=== PATIENT | male | born 1980 | race African-American/Black ===

== ENCOUNTER 2018-04-13 17:42 | Inpatient (IN) | payer SELFPAY ==
[2018-04-13] VITALS (7 sets, daily range): BP systolic 100–117; BP diastolic 54–87
[~2018-04-13] VITALS: Ht 167.6 cm; Wt 78.7 kg
[~2018-04-13 17:42] MED LIST: CALCIUM CHLORIDE 1GM/10ML SYR IV ONE; EPINEPHRINE 0.1MG/ML (1:10,000) 10ML SYR ONE; MAGNESIUM SULFATE 4G IN WATER 100ML PREMIX IV ONE; SODIUM BICARBONATE 7.5% 0.9 MEQ/ML 50ML SYR IV ONE
[2018-04-13] MEDS ORDERED: EPINEPHRINE 0.1MG/ML (1:10,000) 10ML SYR ONE (18:06)
[2018-04-13] MEDS ORDERED: ALBUTEROL (0.083%) 2.5MG/3ML NEB ONE ×2 (18:07→18:30)
[2018-04-13] MEDS ORDERED: IPRATROPIUM BROMIDE (0.02%) 0.5MG/2.5ML NEB ONE (18:29)
[2018-04-13] MEDS ORDERED: NOREPINEPHRINE 4 MG in DEXTROSE 5% WATER 250 ML IV PRN (18:30)
[2018-04-13 19:03] LABS: BG FRACTION INSPIRED OXYGEN 100; BG SAMPLE SITE LEFT RADIAL; BG TIDAL VOLUME(mL) 450 mL; BG VENT MODE VENT - A/C; BG VENT RATE 12 set
[2018-04-13 19:04] LABS: BG BASE EXCESS -6.7 mmol/L (-2.0-2.0); BG DEOXYHEMOGLOBIN 0.3 % (0.0-5.0); BG HCO3 ACT 27.8 mmol/L (22.0-26.0); BG METHEMOGLOBIN 0.5 % (0.0-1.5); BG OXYGEN SATURATION 99.7 % (92.0-98.5); BG OXYHEMOGLOBIN 99.2 % (94.0-97.0); BG PCO2 119.2 mmHg (35.0-45.0); BG PH 6.985 (7.350-7.450); BG TOTAL HEMOGLOBIN 13.5 g/dL (12.0-18.0)
[2018-04-13] MEDS ORDERED: IPRATROPIUM BROMIDE (0.02%) 0.5MG/2.5ML NEB HHN STA (19:05)
[2018-04-13] MEDS ORDERED: ALBUTEROL (0.083%) 2.5MG/3ML NEB HHN STA (19:05)
[2018-04-13] MEDS ORDERED: METHYLPREDNISOLONE SOD SUCC 125 MG/2 ML VIAL IV STA (19:05)
[2018-04-13] MEDS ORDERED: MAGNESIUM 2 G PREMIX 50 ML IV ONE (19:15)
[2018-04-13] MEDS ORDERED: NOREPINEPHRINE 4 MG in DEXT 5% WATER 246 ML IV ONE (19:15)
[2018-04-13 19:42] LABS: BASOPHILS % 0.4 % (0.0-2.0); EOSINOPHILS % 10.7 % (0.0-5.0); HEMATOCRIT. 40.7 % (42.0-52.0); HEMOGLOBIN. 13.1 g/dL (14.0-18.0); LYMPHOCYTES % 28.8 % (20.0-50.0); MEAN CORPUSCULAR HEMOGLOBIN 30.6 pg (28.0-32.0); MEAN CORPUSCULAR VOLUME 94.9 fL (80.0-94.0); MONOCYTES % 2.3 % (2.0-8.0); NEUTROPHILS % 57.8 % (40.0-76.0); PLATELET 272 x1000/uL (130-400); RED BLOOD CELL COUNT 4.29 mill/uL (4.7-6.1); RED CELL DISTRIBUTION WIDTH 12.8 % (11.6-14.6)
[2018-04-13 19:48] LABS: CHLORIDE 107 mEq/L (98-107)
[2018-04-13 19:49] LABS: INR 1.1; PARTIAL THROMBOPLASTIN TIME 24.3 sec (23.4-31.0)
[2018-04-13 19:52] LABS: ETHANOL BLOOD < 10 mg/dL
[2018-04-13] MEDS ORDERED: PIPERACILLIN/TAZ 3.375G PREMIX 50 ML IV ONE (20:15)
[2018-04-13] MEDS ORDERED: VANCOMYCIN 1 G PREMIX 200 ML IV ONE (20:15)
[2018-04-13 21:03] LABS: BG CARBOXYHEMOGLOBIN 0.6 % (0.5-1.5); BG DEOXYHEMOGLOBIN 0.6 % (0.0-5.0); BG FRACTION INSPIRED OXYGEN 100; BG HCO3 ACT 30.4 mmol/L (22.0-26.0); BG METHEMOGLOBIN 0.7 % (0.0-1.5); BG OXYGEN SATURATION 99.4 % (92.0-98.5); BG OXYHEMOGLOBIN 98.1 % (94.0-97.0); BG PCO2 136.9 mmHg (35.0-45.0); BG PH 6.964 (7.350-7.450); BG SAMPLE SITE RIGHT RADIAL; BG TIDAL VOLUME(mL) 450 mL; BG TOTAL HEMOGLOBIN 15.9 g/dL (12.0-18.0); BG VENT MODE VENT - A/C; BG VENT RATE 12 set
[2018-04-13] MEDS ORDERED: CLONIDINE 0.1MG TABLET NG PRN (21:15)
[2018-04-13] MEDS ORDERED: ACETAMINOPHEN 650MG/20.3ML UDC GT PRN (21:15)
[2018-04-13] MEDS ORDERED: DIPHENHYDRAMINE 50MG/ML VIAL IV PRN (21:15)
[2018-04-13] MEDS ORDERED: LORAZEPAM 2MG/ML CPJ IV PRN (21:15)
[2018-04-13] MEDS ORDERED: IPRATROPIUM/ALBUTEROL 0.5-3(2.5)MG/3ML NEB INH PRN (21:15)
[2018-04-13] MEDS ORDERED: IOHEXOL-350 100 ML BOTTLE ONE (21:19)
[2018-04-13] MEDS ORDERED: SODIUM CHLORIDE 0.9% 2,000 ML IV ONE (21:54)
[2018-04-13 22:25] LABS: CLARITY URINE CLOUDY (CLEAR); COLOR URINE YELLOW (YELLOW); KETONES URINE NEGATIVE (NEGATIVE); LEUKOCYTE ESTERASE URINE NEGATIVE (NEGATIVE); NITRITE URINE NEGATIVE (NEGATIVE); OCCULT BLOOD URINE 3+ (NEGATIVE); PROTEIN URINE 3+ (NEGATIVE); SPECIFIC GRAVITY URINE 1.048 (1.005-1.030)
[2018-04-13 22:39] LABS: *BARBITURATES SCREEN URINE NEGATIVE (NEGATIVE); *BENZODIAZEPINES SCREEN URINE NEGATIVE (NEGATIVE); *COCAINE SCREEN URINE NEGATIVE (NEGATIVE)
[2018-04-13 22:40] LABS: *AMPHETAMINES SCREEN URINE NEGATIVE (NEGATIVE); CANNABINOID URINE SCREEN NEGATIVE (NEGATIVE); METHADONE URINE SCREEN NEGATIVE (NEGATIVE); OPIATES URINE SCREEN NEGATIVE (NEGATIVE); PHENCYCLIDINE URINE SCREEN NEGATIVE (NEGATIVE)
[2018-04-13 22:52] LABS: BG BASE EXCESS -3.5 mmol/L (-2.0-2.0); BG CARBOXYHEMOGLOBIN 0.3 % (0.5-1.5); BG DEOXYHEMOGLOBIN 4.8 % (0.0-5.0); BG FRACTION INSPIRED OXYGEN 60; BG HCO3 ACT 31.2 mmol/L (22.0-26.0); BG METHEMOGLOBIN 0.5 % (0.0-1.5); BG OXYGEN SATURATION 95.2 % (92.0-98.5); BG OXYHEMOGLOBIN 94.4 % (94.0-97.0); BG PCO2 120.6 mmHg (35.0-45.0); BG SAMPLE SITE RIGHT RADIAL; BG TIDAL VOLUME(mL) 500 mL; BG TOTAL HEMOGLOBIN 15.1 g/dL (12.0-18.0); BG VENT MODE VENT - A/C; BG VENT RATE 16 set
[2018-04-13] MEDS ORDERED: MORPHINE SULFATE 4 MG/ML CPJ (NOT FOR IM USE) IV PRN (23:00)
[2018-04-13] MEDS ORDERED: ONDANSETRON HCL 4MG/2ML VIAL IV PRN (23:06)
[2018-04-13] MEDS: DEXT 5%/0.45% NACL 1000ML 1,000 ML IV SCH (23:15)
[2018-04-14] VITALS (95 sets, daily range): BP systolic 107–151; BP diastolic 64–107
[2018-04-14] MEDS: DEXAMETHASONE 10 MG/ML VIAL IV SCH ×5 (00:57→23:04)
[2018-04-14] MEDS ORDERED: LEVOFLOXACIN 500MG PREMIX 100 ML IV SCH (01:00)
[2018-04-14] MEDS ORDERED: METHYLPREDNISOLONE SOD SUCC 125 MG/2 ML VIAL IV SCH (05:00)
[2018-04-14 05:43] LABS: HEMATOCRIT. 45.3 % (42.0-52.0); HEMOGLOBIN. 14.3 g/dL (14.0-18.0); MEAN CORPUSCULAR HEMOGLOBIN 30.1 pg (28.0-32.0); MEAN CORPUSCULAR VOLUME 95.9 fL (80.0-94.0); MEAN PLATELET VOLUME 8.1 fl (7.4-10.4); PLATELET 291 x1000/uL (130-400); RED BLOOD CELL COUNT 4.73 mill/uL (4.7-6.1)
[2018-04-14] MEDS: DEXT 5%/0.45% NACL 1000ML 1,000 ML IV SCH ×3 (05:56→23:04)
[2018-04-14 06:07] LABS: BG BASE EXCESS -6.7 mmol/L (-2.0-2.0); BG CARBOXYHEMOGLOBIN 0.2 % (0.5-1.5); BG DEOXYHEMOGLOBIN 0.8 % (0.0-5.0); BG FRACTION INSPIRED OXYGEN 60; BG HCO3 ACT 19.4 mmol/L (22.0-26.0); BG METHEMOGLOBIN 0.4 % (0.0-1.5); BG OXYGEN SATURATION 99.2 % (92.0-98.5); BG OXYHEMOGLOBIN 98.6 % (94.0-97.0); BG PCO2 40.7 mmHg (35.0-45.0); BG PH 7.296 (7.350-7.450); BG PO2 180.4 mmHg (75.0-100.0); BG SAMPLE SITE RIGHT RADIAL; BG TIDAL VOLUME(mL) 550 mL; BG VENT MODE VENT - A/C; BG VENT RATE 22 set
[2018-04-14] MEDS ORDERED: SODIUM BICARBONATE 8.4% 1 MEQ/ML 50ML SYR IV NR (06:45)
[2018-04-14 07:16] LABS: CHLORIDE 107 mEq/L (98-107)
[2018-04-14 07:23] LABS: PHOSPHORUS 5.3 mg/dL (2.5-4.9)
[2018-04-14] MEDS: IPRATROPIUM/ALBUTEROL 0.5-3(2.5)MG/3ML NEB HHN SCH ×4 (07:55→20:27)
[2018-04-14] MEDS ORDERED: ENOXAPARIN 40MG/0.4ML SYR SUBCUT SCH (09:00)
[2018-04-14] MEDS ORDERED: PANTOPRAZOLE SODIUM 40 MG/VIAL IV SCH (09:00)
[2018-04-14] MEDS: FAMOTIDINE 20MG/2ML VIAL IV SCH (09:28)
[2018-04-14] MEDS: PIPERACILLIN/TAZ 3.375G PREMIX 50 ML IV SCH ×3 (09:28→20:25)
[2018-04-14] MEDS: LORATADINE 10MG TABLET PO SCH (09:28)
[2018-04-14] MEDS ORDERED: SODIUM POLYSTYRENE SULFONATE 15 G/60 ML BOT PO NR (11:00)
[2018-04-14] MEDS: BUDESONIDE 0.5MG/2ML NEB HHN SCH ×2 (11:31→20:27)
[2018-04-14] MEDS: ACETAMINOPHEN 650MG SUPP PR PRN ×2 (11:40→17:09)
[2018-04-14 12:14] LABS: CREATINE KINASE 29478 IU/L (39-308)
[2018-04-14 12:39] LABS: BG BASE EXCESS 0.7 mmol/L (-2.0-2.0); BG CARBOXYHEMOGLOBIN 0.9 % (0.5-1.5); BG DEOXYHEMOGLOBIN 2.8 % (0.0-5.0); BG FRACTION INSPIRED OXYGEN 50; BG HCO3 ACT 26.8 mmol/L (22.0-26.0); BG METHEMOGLOBIN 0.5 % (0.0-1.5); BG OXYGEN SATURATION 97.2 % (92.0-98.5); BG OXYHEMOGLOBIN 95.8 % (94.0-97.0); BG PCO2 48.5 mmHg (35.0-45.0); BG SAMPLE SITE RIGHT RADIAL; BG TIDAL VOLUME(mL) 550 mL; BG TOTAL HEMOGLOBIN 14.8 g/dL (12.0-18.0); BG VENT MODE VENT - A/C; BG VENT RATE 22 set
[2018-04-14 13:21] LABS: AMMONIA 22 uMol/L (<32)
[2018-04-14 13:27] LABS: PLATELET ESTIMATE NORMAL
[2018-04-14] MEDS ORDERED: VANCOMYCIN 1 G PREMIX 200 ML IV SCH (15:00)
[2018-04-14] MEDS: MONTELUKAST SODIUM 10MG TABLET PO SCH (17:09)
[2018-04-14] MEDS ORDERED: LORAZEPAM 2MG/ML CPJ IV PRN (21:15)
[2018-04-14] MEDS ORDERED: HYDRALAZINE 20MG/ML VIAL IV PRN (23:00)
[2018-04-15] VITALS (98 sets, daily range): BP systolic 74–145; BP diastolic 44–87
[2018-04-15] MEDS: POLYVINYL ALCOHOL OPHTH DROPS 15ML BOTHEYE SCH ×5 (00:38→23:32)
[2018-04-15] MEDS: IPRATROPIUM/ALBUTEROL 0.5-3(2.5)MG/3ML NEB HHN SCH ×7 (01:00→23:48)
[2018-04-15] MEDS: PIPERACILLIN/TAZ 3.375G PREMIX 50 ML IV SCH ×4 (03:06→20:05)
[2018-04-15] MEDS: DEXAMETHASONE 10 MG/ML VIAL IV SCH ×4 (05:30→23:32)
[2018-04-15] MEDS ORDERED: VANCOMYCIN 1 G PREMIX 200 ML IV SCH (06:00)
[2018-04-15] MEDS: DEXT 5%/0.45% NACL 1000ML 1,000 ML IV SCH ×3 (07:26→23:37)
[2018-04-15 07:41] LABS: BG BASE EXCESS 1.7 mmol/L (-2.0-2.0); BG CARBOXYHEMOGLOBIN 0.3 % (0.5-1.5); BG FRACTION INSPIRED OXYGEN 50; BG HCO3 ACT 27.4 mmol/L (22.0-26.0); BG METHEMOGLOBIN 1.3 % (0.0-1.5); BG OXYHEMOGLOBIN 96.4 % (94.0-97.0); BG PCO2 47.1 mmHg (35.0-45.0); BG PH 7.382 (7.350-7.450); BG PO2 115.5 mmHg (75.0-100.0); BG SAMPLE SITE RIGHT RADIAL; BG TIDAL VOLUME(mL) 550 mL; BG TOTAL HEMOGLOBIN 13.6 g/dL (12.0-18.0); BG VENT MODE VENT - A/C; BG VENT RATE 22 set
[2018-04-15] MEDS: BUDESONIDE 0.5MG/2ML NEB HHN SCH (08:14)
[2018-04-15] MEDS: PHENYLEPHRINE 40 MG in DEXT 5% WATER 246 ML IV PRN ×2 (08:46→18:00)
[2018-04-15] MEDS: FAMOTIDINE 20MG/2ML VIAL IV SCH (08:57)
[2018-04-15] MEDS: LORATADINE 10MG TABLET PO SCH (08:57)
[2018-04-15 13:02] LABS: HEMATOCRIT. 38.2 % (42.0-52.0); HEMOGLOBIN. 12.6 g/dL (14.0-18.0); MEAN CORPUSCULAR HEMOGLOBIN 30.4 pg (28.0-32.0); MEAN CORPUSCULAR VOLUME 92.6 fL (80.0-94.0); MEAN PLATELET VOLUME 7.8 fl (7.4-10.4); PLATELET 190 x1000/uL (130-400); RED BLOOD CELL COUNT 4.13 mill/uL (4.7-6.1); RED CELL DISTRIBUTION WIDTH 12.7 % (11.6-14.6)
[2018-04-15 13:09] LABS: CHLORIDE 111 mEq/L (98-107)
[2018-04-15 13:15] LABS: PHOSPHORUS 1.8 mg/dL (2.5-4.9)
[2018-04-15] MEDS: BLOOD SUGAR DIAGNOSTIC STRIP TEST SCH ×4 (13:15→23:32)
[2018-04-15] MEDS ORDERED: DEXTROSE 50% WATER 50ML SYRINGE IV PRN (13:15)
[2018-04-15 13:41] LABS: PLATELET ESTIMATE NORMAL
[2018-04-15] MEDS: MONTELUKAST SODIUM 10MG TABLET PO SCH (16:16)
[2018-04-15] MEDS: INSULIN LISPRO 100 UNITS/ML SUBCUT SCH ×3 (16:17→23:33)
[2018-04-16] VITALS (93 sets, daily range): BP systolic 82–159; BP diastolic 37–121
[2018-04-16] MEDS: BLOOD SUGAR DIAGNOSTIC STRIP TEST SCH ×6 (03:57→23:24)
[2018-04-16] MEDS: INSULIN LISPRO 100 UNITS/ML SUBCUT SCH ×6 (03:58→23:25)
[2018-04-16] MEDS: PIPERACILLIN/TAZ 3.375G PREMIX 50 ML IV SCH ×4 (03:58→20:00)
[2018-04-16] MEDS: IPRATROPIUM/ALBUTEROL 0.5-3(2.5)MG/3ML NEB HHN SCH ×5 (04:08→21:03)
[2018-04-16 05:20] LABS: HEMATOCRIT. 40.2 % (42.0-52.0); HEMOGLOBIN. 13.1 g/dL (14.0-18.0); MEAN CORPUSCULAR HEMOGLOBIN 30.4 pg (28.0-32.0); MEAN CORPUSCULAR VOLUME 93.1 fL (80.0-94.0); MEAN PLATELET VOLUME 8.6 fl (7.4-10.4); PLATELET 218 x1000/uL (130-400); RED BLOOD CELL COUNT 4.32 mill/uL (4.7-6.1); RED CELL DISTRIBUTION WIDTH 12.9 % (11.6-14.6)
[2018-04-16] MEDS: POLYVINYL ALCOHOL OPHTH DROPS 15ML BOTHEYE SCH ×4 (05:50→23:27)
[2018-04-16] MEDS: DEXAMETHASONE 10 MG/ML VIAL IV SCH ×4 (05:51→23:24)
[2018-04-16] MEDS: BUDESONIDE 0.5MG/2ML NEB HHN SCH ×2 (07:46→21:01)
[2018-04-16] MEDS: DEXT 5%/0.45% NACL 1000ML 1,000 ML IV SCH (08:11)
[2018-04-16] MEDS: LORATADINE 10MG TABLET PO SCH (08:57)
[2018-04-16] MEDS: ASPIRIN 81MG TABLET PO SCH (08:57)
[2018-04-16] MEDS: FAMOTIDINE 20MG/2ML VIAL IV SCH (08:57)
[2018-04-16] MEDS: AMMONIUM LACTATE 12% LOTION 240ML TOP SCH ×2 (08:58→16:41)
[2018-04-16] MEDS: DEXT 5%/0.2% NACL 1,000 ML IV SCH ×2 (08:59→17:37)
[2018-04-16] MEDS: INSULIN GLARGINE UD 100 UNITS/ML SYR SUBCUT SCH ×2 (09:11→21:02)
[2018-04-16] MEDS ORDERED: VANCOMYCIN 1 G PREMIX 200 ML IV SCH (10:00)
[2018-04-16 10:47] LABS: PLATELET ESTIMATE NORMAL
[2018-04-16] MEDS: PHENYLEPHRINE 40 MG in DEXT 5% WATER 246 ML IV PRN (12:35)
[2018-04-16] MEDS: MONTELUKAST SODIUM 10MG TABLET PO SCH (16:41)
[2018-04-17] VITALS (113 sets, daily range): BP systolic 84–155; BP diastolic 42–99
[2018-04-17] MEDS ORDERED: VANCOMYCIN 1 G PREMIX 200 ML IV SCH
[2018-04-17] MEDS: IPRATROPIUM/ALBUTEROL 0.5-3(2.5)MG/3ML NEB HHN SCH ×4 (00:50→12:35)
[2018-04-17] MEDS: PIPERACILLIN/TAZ 3.375G PREMIX 50 ML IV SCH ×2 (02:44→08:52)
[2018-04-17] MEDS: BLOOD SUGAR DIAGNOSTIC STRIP TEST SCH ×3 (03:33→14:10)
[2018-04-17] MEDS: INSULIN LISPRO 100 UNITS/ML SUBCUT SCH ×3 (03:36→14:01)
[2018-04-17] MEDS: DEXT 5%/0.2% NACL 1,000 ML IV SCH (03:36)
[2018-04-17 05:31] LABS: HEMATOCRIT. 41.3 % (42.0-52.0); HEMOGLOBIN. 13.2 g/dL (14.0-18.0); MEAN CORPUSCULAR HEMOGLOBIN 30.6 pg (28.0-32.0); MEAN CORPUSCULAR VOLUME 96.1 fL (80.0-94.0); MEAN PLATELET VOLUME 9.3 fl (7.4-10.4); PLATELET 209 x1000/uL (130-400); RED CELL DISTRIBUTION WIDTH 13.5 % (11.6-14.6)
[2018-04-17 05:54] LABS: PHOSPHORUS 2.8 mg/dL (2.5-4.9)
[2018-04-17] MEDS: DEXAMETHASONE 10 MG/ML VIAL IV SCH (05:57)
[2018-04-17] MEDS: POLYVINYL ALCOHOL OPHTH DROPS 15ML BOTHEYE SCH ×2 (05:58→14:10)
[2018-04-17] MEDS: PHENYLEPHRINE 40 MG in DEXT 5% WATER 246 ML IV PRN (05:59)
[2018-04-17] MEDS: BUDESONIDE 0.5MG/2ML NEB HHN SCH (08:05)
[2018-04-17 08:43] LABS: BG BASE EXCESS -1.8 mmol/L (-2.0-2.0); BG CARBOXYHEMOGLOBIN 0.6 % (0.5-1.5); BG DEOXYHEMOGLOBIN 1.9 % (0.0-5.0); BG FRACTION INSPIRED OXYGEN 50; BG HCO3 ACT 24.1 mmol/L (22.0-26.0); BG METHEMOGLOBIN 0.3 % (0.0-1.5); BG OXYGEN SATURATION 98.1 % (92.0-98.5); BG OXYHEMOGLOBIN 97.2 % (94.0-97.0); BG PCO2 45.2 mmHg (35.0-45.0); BG PH 7.344 (7.350-7.450); BG PO2 115.3 mmHg (75.0-100.0); BG SAMPLE SITE RIGHT RADIAL; BG TIDAL VOLUME(mL) 550 mL; BG VENT MODE VENT - A/C; BG VENT RATE 22 set
[2018-04-17] MEDS: LORATADINE 10MG TABLET PO SCH (08:52)
[2018-04-17] MEDS: FAMOTIDINE 20MG/2ML VIAL IV SCH (08:52)
[2018-04-17] MEDS: ASPIRIN 81MG TABLET PO SCH (08:52)
[2018-04-17] MEDS ORDERED: DEXTROSE 5% WATER 1,000 ML IV SCH ×2 (09:00→12:45)
[2018-04-17] MEDS: AMMONIUM LACTATE 12% LOTION 240ML TOP SCH (09:33)
[2018-04-17 09:43] LABS: BG BASE EXCESS 0.1 mmol/L (-2.0-2.0); BG CARBOXYHEMOGLOBIN 0.5 % (0.5-1.5); BG DEOXYHEMOGLOBIN 0.2 % (0.0-5.0); BG FRACTION INSPIRED OXYGEN 100; BG HCO3 ACT 25.8 mmol/L (22.0-26.0); BG METHEMOGLOBIN 0.4 % (0.0-1.5); BG OXYGEN SATURATION 99.8 % (92.0-98.5); BG OXYHEMOGLOBIN 98.9 % (94.0-97.0); BG PCO2 45.6 mmHg (35.0-45.0); BG PO2 524.6 mmHg (75.0-100.0); BG SAMPLE SITE LEFT RADIAL; BG TIDAL VOLUME(mL) 550 mL; BG TOTAL HEMOGLOBIN 13.7 g/dL (12.0-18.0); BG VENT MODE VENT - A/C; BG VENT RATE 22 set
[2018-04-17 09:55] LABS: BG BASE EXCESS -1.5 mmol/L (-2.0-2.0); BG CARBOXYHEMOGLOBIN 0.3 % (0.5-1.5); BG DEOXYHEMOGLOBIN 0.3 % (0.0-5.0); BG FRACTION INSPIRED OXYGEN 44; BG METHEMOGLOBIN 0.5 % (0.0-1.5); BG OXYGEN SATURATION 99.7 % (92.0-98.5); BG OXYHEMOGLOBIN 98.9 % (94.0-97.0); BG PCO2 71.4 mmHg (35.0-45.0); BG PH 7.212 (7.350-7.450); BG PO2 440.8 mmHg (75.0-100.0); BG SAMPLE SITE RIGHT RADIAL; BG TOTAL HEMOGLOBIN 13.7 g/dL (12.0-18.0); BG VENT MODE NASAL CANNULA
[2018-04-17 09:57] LABS: PLATELET ESTIMATE NORMAL
[2018-04-17] MEDS ORDERED: VASOPRESSIN 10 UNIT in SODIUM CHLORIDE 0.9% 99.5 ML IV PRN (10:30)
[2018-04-17] MEDS: INSULIN GLARGINE UD 100 UNITS/ML SYR SUBCUT SCH (11:35)
== END 2018-04-17 13:57 | disposition expired | DRG 720 ==
LOC: ER 17:42 → EDBEDREQSVC 18:49 → EDBEDREQ 20:18 → EDBEDREQTM 20:18 → ENRESERV 20:32 → MICUSO 22:36
PROVIDERS: ADMIT Internal Medicine; ATTEND Internal Medicine
PROC: 5A1955Z Respiratory Ventilation, Greater than 96 Consecutive Hours (ICD-10-PCS; principal; 2018-04-13)
PROC: 5A12012 Performance of Cardiac Output, Single, Manual (ICD-10-PCS; 2018-04-13)
PROC: 02HV33Z Insertion of Infusion Device into Superior Vena Cava, Percutaneous Approach (ICD-10-PCS; 2018-04-13)
PROC: B548ZZA Ultrasonography of Superior Vena Cava, Guidance (ICD-10-PCS; 2018-04-13)
PROC: 4A00X4Z Measurement of Central Nervous Electrical Activity, External Approach (ICD-10-PCS; 2018-04-14)
DX: A41.9 Sepsis, unspecified organism (principal); I21.4 Non-ST elevation (NSTEMI) myocardial infarction; J96.02 Acute respiratory failure with hypercapnia; I46.8 Cardiac arrest due to other underlying condition; J69.0 Pneumonitis due to inhalation of food and vomit; E87.2 Acidosis; G93.1 Anoxic brain damage, not elsewhere classified; D72.1 Eosinophilia; N17.9 Acute kidney failure, unspecified; J45.901 Unspecified asthma with (acute) exacerbation; E44.0 Moderate protein-calorie malnutrition; R74.0 Nonspecific elevation of levels of transaminase and lactic acid dehydrogenase [LDH]; R40.2430 Glasgow coma scale score 3-8, unspecified time; Z91.012 Allergy to eggs; Z91.018 Allergy to other foods; Z68.28 Body mass index [BMI] 28.0-28.9, adult
CPT/HCPCS: 31500; 36415; 36556; 36600; 70450; 71045; 71275; 78615; 80048; 80053; 80202; 80305; 81003; 82140; 82375; 82550; 82805; 82962; 83605; 83690; 83735; 83880; 84100; 84484; 85025; 85610; 85730; 86703; 87040; 87070; 87086; 92950; 93005; 93306; 93970; 94002; 94003; 94640; 96365; 96367; 99291; 99292; A9512; G0482; J1100; J1815; J1956; J2060; J2270; J2370; J2543; J2930; J3370; J3475; J3490; J7030; J7050; J7060; J7070; J7611; J7620; J7626; Q9967

== ENCOUNTER 2018-04-17 13:57 | Inpatient (IN) | payer OTHER ==
[~2018-04-17] VITALS: Ht 198.1 cm; Wt 81.6 kg
[2018-04-17] VITALS (17 sets, daily range): BP systolic 81–197; BP diastolic 50–111
[2018-04-17] MEDS ORDERED: INSULIN LISPRO 100 UNITS/ML SUBCUT SCH (16:00)
[2018-04-17] MEDS ORDERED: BLOOD SUGAR DIAGNOSTIC STRIP TEST SCH ×2 (16:00→18:45)
[2018-04-17 16:24] LABS: BG BASE EXCESS 1.7 mmol/L (-2.0-2.0); BG CARBOXYHEMOGLOBIN 0.3 % (0.5-1.5); BG DEOXYHEMOGLOBIN 1.6 % (0.0-5.0); BG FRACTION INSPIRED OXYGEN 50; BG HCO3 ACT 27.8 mmol/L (22.0-26.0); BG METHEMOGLOBIN 0.3 % (0.0-1.5); BG OXYGEN SATURATION 98.4 % (92.0-98.5); BG OXYHEMOGLOBIN 97.8 % (94.0-97.0); BG PCO2 50.4 mmHg (35.0-45.0); BG PO2 118.9 mmHg (75.0-100.0); BG SAMPLE SITE RIGHT BRACHIAL; BG TIDAL VOLUME(mL) 550 mL; BG TOTAL HEMOGLOBIN 12.4 g/dL (12.0-18.0); BG VENT MODE VENT - A/C; BG VENT RATE 22 set
[2018-04-17] MEDS ORDERED: DEXTROSE 5% WATER 1,000 ML IV SCH (17:00)
[2018-04-17] MEDS ORDERED: VASOPRESSIN 100 UNIT in SODIUM CHLORIDE 0.9% 99.5 ML IV PRN (17:00)
[2018-04-17] MEDS ORDERED: ONDANSETRON HCL 4MG/2ML VIAL IV PRN (17:00)
[2018-04-17] MEDS ORDERED: ACETAMINOPHEN 650MG/20.3ML UDC PO PRN (17:00)
[2018-04-17] MEDS ORDERED: DEXTROSE 50% WATER 50ML SYRINGE IV PRN (17:15)
[2018-04-17] MEDS ORDERED: DOBUTAMINE 250MG PREMIX 250 ML IV SCH ×2 (17:15→18:37)
[2018-04-17] MEDS ORDERED: INSULIN REGULAR (DRIP) 100 UNITS in SODIUM CHLORIDE 0.9% 99 ML IV SCH (18:15)
[2018-04-17 18:38] LABS: HEMOGLOBIN. 11.4 g/dL (14.0-18.0); MEAN CORPUSCULAR HEMOGLOBIN 30.4 pg (28.0-32.0); MEAN PLATELET VOLUME 8.3 fl (7.4-10.4); PLATELET 173 x1000/uL (130-400); RED BLOOD CELL COUNT 3.75 mill/uL (4.7-6.1); RED CELL DISTRIBUTION WIDTH 13.5 % (11.6-14.6)
[2018-04-17 18:45] LABS: CHLORIDE 126 mEq/L (98-107)
[2018-04-17] MEDS ORDERED: SODIUM CHLORIDE 0.9% 500 ML IV SCH (18:45)
[2018-04-17 18:47] LABS: INR 1.1; PARTIAL THROMBOPLASTIN TIME 21.1 sec (23.4-31.0); PROTHROMBIN TIME 10.7 sec (9.1-11.1)
[2018-04-17 18:53] LABS: AMYLASE 92 IU/L (25-115)
[2018-04-17 18:56] LABS: PHOSPHORUS 3.4 mg/dL (2.5-4.9)
[2018-04-17 18:58] LABS: CREATINE KINASE 490 IU/L (39-308); CREATINE KINASE MB FRACTION 2.9 ng/mL (0.5-3.6)
[2018-04-17] MEDS ORDERED: HETASTARCH/NORMAL SALINE 500 ML PLAST..BAG IV ONE (19:15)
[2018-04-17 19:21] LABS: PLATELET ESTIMATE NORMAL
[2018-04-17] MEDS ORDERED: HETASTARCH IV NR (19:45)
[2018-04-17] MEDS ORDERED: NORMAL SALINE IV NR (19:45)
[2018-04-17] MEDS ORDERED: HETASTARCH/NORMAL SALINE 500 ML IV NR (19:45)
[2018-04-17] MEDS: VASOPRESSIN 100 UNIT in SODIUM CHLORIDE 0.9% 99.5 ML IV SCH (19:55)
[2018-04-17] MEDS: INSULIN REGULAR (DRIP) 100 UNITS in SODIUM CHLORIDE 0.9% 100 ML IV SCH (20:23)
[2018-04-17 21:34] LABS: CLARITY URINE CLOUDY (CLEAR); COLOR URINE YELLOW (YELLOW); KETONES URINE NEGATIVE (NEGATIVE); LEUKOCYTE ESTERASE URINE NEGATIVE (NEGATIVE); NITRITE URINE NEGATIVE (NEGATIVE); OCCULT BLOOD URINE 1+ (NEGATIVE); PROTEIN URINE 1+ (NEGATIVE); SPECIFIC GRAVITY URINE 1.028 (1.005-1.030); UROBILINOGEN URINE 0.2 E.U./dL (0.2-1.0)
[2018-04-17] MEDS: BLOOD SUGAR DIAGNOSTIC STRIP TEST SCH (22:00)
[2018-04-17] MEDS ORDERED: LEVOTHYROXINE SODIUM 100 MCG/ VIAL IV SCH ×2 (22:10→22:15)
[2018-04-17 22:17] LABS: BG BASE EXCESS -0.2 mmol/L (-2.0-2.0); BG DEOXYHEMOGLOBIN 0.6 % (0.0-5.0); BG FRACTION INSPIRED OXYGEN 50; BG HCO3 ACT 25.3 mmol/L (22.0-26.0); BG METHEMOGLOBIN 0.2 % (0.0-1.5); BG OXYGEN SATURATION 99.4 % (92.0-98.5); BG OXYHEMOGLOBIN 99.2 % (94.0-97.0); BG PCO2 45.3 mmHg (35.0-45.0); BG PH 7.365 (7.350-7.450); BG PO2 230.7 mmHg (75.0-100.0); BG SAMPLE SITE A-LINE; BG TOTAL HEMOGLOBIN 10.5 g/dL (12.0-18.0); BG VENT MODE VENT - PCV
[2018-04-17] MEDS: LEVOTHYROXINE SODIUM 200 MCG in SODIUM CHLORIDE 0.9% 500 ML IV SCH (22:56)
[2018-04-18] VITALS (68 sets, daily range): BP systolic 108–169; BP diastolic 65–113
[2018-04-18] MEDS ORDERED: LEVOTHYROXINE SODIUM 100 MCG/ VIAL IV SCH
[2018-04-18] MEDS ORDERED: SODIUM CHLORIDE 0.9% IV SCH ×2
[2018-04-18] MEDS ORDERED: METHYLPREDNISOLONE SOD SUCC IV SCH ×2
[2018-04-18 00:29] LABS: BG CARBOXYHEMOGLOBIN 0.5 % (0.5-1.5); BG FRACTION INSPIRED OXYGEN 40; BG HCO3 ACT 24.2 mmol/L (22.0-26.0); BG METHEMOGLOBIN 0.3 % (0.0-1.5); BG OXYHEMOGLOBIN 98.2 % (94.0-97.0); BG PCO2 42.5 mmHg (35.0-45.0); BG PH 7.374 (7.350-7.450); BG PO2 167.2 mmHg (75.0-100.0); BG SAMPLE SITE A-LINE; BG TOTAL HEMOGLOBIN 13.2 g/dL (12.0-18.0); BG VENT MODE VENT - PCV
[2018-04-18 00:50] LABS: BASOPHILS % 0.1 % (0.0-2.0); HEMATOCRIT. 30.9 % (42.0-52.0); HEMOGLOBIN. 9.8 g/dL (14.0-18.0); LYMPHOCYTES % 8.2 % (20.0-50.0); MEAN CORPUSCULAR HEMOGLOBIN 30.2 pg (28.0-32.0); MEAN CORPUSCULAR VOLUME 95.1 fL (80.0-94.0); MEAN PLATELET VOLUME 8.6 fl (7.4-10.4); MONOCYTES % 6.9 % (2.0-8.0); NEUTROPHILS % 84.8 % (40.0-76.0); PLATELET 141 x1000/uL (130-400); RED BLOOD CELL COUNT 3.25 mill/uL (4.7-6.1); RED CELL DISTRIBUTION WIDTH 13.4 % (11.6-14.6)
[2018-04-18 00:57] LABS: INR 1.1; PARTIAL THROMBOPLASTIN TIME 21.1 sec (23.4-31.0)
[2018-04-18 00:58] LABS: CHLORIDE 131 mEq/L (98-107)
[2018-04-18 01:04] LABS: AMYLASE 232 IU/L (25-115)
[2018-04-18 01:06] LABS: PHOSPHORUS 3.7 mg/dL (2.5-4.9)
[2018-04-18 01:08] LABS: CREATINE KINASE 318 IU/L (39-308)
[2018-04-18 01:09] LABS: CREATINE KINASE MB FRACTION 1.9 ng/mL (0.5-3.6)
[2018-04-18] MEDS ORDERED: ALBUMIN HUMAN 25GM/100ML (25%) IV SCH (01:15)
[2018-04-18] MEDS ORDERED: FUROSEMIDE 100MG/10ML VIAL IVP SCH ×2 (01:16→06:00)
[2018-04-18] MEDS: BLOOD SUGAR DIAGNOSTIC STRIP TEST SCH ×14 (02:00→23:55)
[2018-04-18 04:16] LABS: CLARITY URINE TURBID (CLEAR); COLOR URINE DARK YELLOW (YELLOW); KETONES URINE TRACE (NEGATIVE); LEUKOCYTE ESTERASE URINE NEGATIVE (NEGATIVE); NITRITE URINE NEGATIVE (NEGATIVE); OCCULT BLOOD URINE 2+ (NEGATIVE); PROTEIN URINE 2+ (NEGATIVE); SPECIFIC GRAVITY URINE 1.059 (1.005-1.030)
[2018-04-18] MEDS: KCL 20MEQ/100ML PREMIX 100 ML IV SCH ×2 (04:36→05:42)
[2018-04-18] MEDS ORDERED: KCL 20MEQ/100ML PREMIX 100 ML IV ONE (05:00)
[2018-04-18] MEDS: INSULIN REGULAR (DRIP) 100 UNITS in SODIUM CHLORIDE 0.9% 100 ML IV SCH ×2 (05:24→13:55)
[2018-04-18 06:08] LABS: BG BASE EXCESS 0.2 mmol/L (-2.0-2.0); BG CARBOXYHEMOGLOBIN 0.3 % (0.5-1.5); BG DEOXYHEMOGLOBIN 2.3 % (0.0-5.0); BG FRACTION INSPIRED OXYGEN 30; BG HCO3 ACT 26.3 mmol/L (22.0-26.0); BG METHEMOGLOBIN 0.1 % (0.0-1.5); BG OXYGEN SATURATION 97.7 % (92.0-98.5); BG OXYHEMOGLOBIN 97.3 % (94.0-97.0); BG PCO2 49.3 mmHg (35.0-45.0); BG PH 7.345 (7.350-7.450); BG PO2 107.6 mmHg (75.0-100.0); BG SAMPLE SITE A-LINE; BG TOTAL HEMOGLOBIN 10.5 g/dL (12.0-18.0); BG VENT MODE VENT - PCV
[2018-04-18 06:45] LABS: MEAN CORPUSCULAR VOLUME 96.1 fL (80.0-94.0); MEAN PLATELET VOLUME 8.8 fl (7.4-10.4); PLATELET 138 x1000/uL (130-400); RED BLOOD CELL COUNT 3.23 mill/uL (4.7-6.1); RED CELL DISTRIBUTION WIDTH 13.6 % (11.6-14.6)
[2018-04-18 06:46] LABS: CHLORIDE 125 mEq/L (98-107)
[2018-04-18 06:50] LABS: AMYLASE 398 IU/L (25-115); INR 1.1; PARTIAL THROMBOPLASTIN TIME 22.4 sec (23.4-31.0); PROTHROMBIN TIME 10.9 sec (9.1-11.1)
[2018-04-18 06:52] LABS: PHOSPHORUS 4.9 mg/dL (2.5-4.9)
[2018-04-18 06:54] LABS: CREATINE KINASE 291 IU/L (39-308)
[2018-04-18 08:37] LABS: CLARITY URINE CLOUDY (CLEAR); COLOR URINE YELLOW (YELLOW); KETONES URINE NEGATIVE (NEGATIVE); LEUKOCYTE ESTERASE URINE TRACE (NEGATIVE); NITRITE URINE NEGATIVE (NEGATIVE); OCCULT BLOOD URINE 2+ (NEGATIVE); PH URINE 5.5 (4.5-8.0); PROTEIN URINE NEGATIVE (NEGATIVE); SPECIFIC GRAVITY URINE 1.009 (1.005-1.030); UROBILINOGEN URINE 0.2 E.U./dL (0.2-1.0)
[2018-04-18] MEDS: METHYLPREDNISOLONE SOD SUCC 500 MG in SODIUM CHLORIDE 0.9% 50 ML IV SCH ×3 (08:50→21:57)
[2018-04-18] MEDS: POLYVINYL ALCOHOL OPHTH DROPS 15ML BOTHEYE SCH ×7 (08:54→23:55)
[2018-04-18] MEDS: FUROSEMIDE 100MG/10ML VIAL IVP SCH ×4 (10:01→21:57)
[2018-04-18 11:35] LABS: PLATELET ESTIMATE NORMAL
[2018-04-18 12:19] LABS: BG BASE EXCESS -2.9 mmol/L (-2.0-2.0); BG CARBOXYHEMOGLOBIN 0.2 % (0.5-1.5); BG DEOXYHEMOGLOBIN 0.2 % (0.0-5.0); BG HCO3 ACT 22.3 mmol/L (22.0-26.0); BG METHEMOGLOBIN 0.3 % (0.0-1.5); BG OXYGEN SATURATION 99.8 % (92.0-98.5); BG OXYHEMOGLOBIN 99.3 % (94.0-97.0); BG PCO2 40.3 mmHg (35.0-45.0); BG PO2 556.7 mmHg (75.0-100.0); BG SAMPLE SITE A-LINE; BG TOTAL HEMOGLOBIN 11.9 g/dL (12.0-18.0); BG VENT MODE VENT - PCV
[2018-04-18 12:42] LABS: HEMATOCRIT. 31.9 % (42.0-52.0); HEMOGLOBIN. 10.3 g/dL (14.0-18.0); MEAN CORPUSCULAR HEMOGLOBIN 30.8 pg (28.0-32.0); MEAN CORPUSCULAR VOLUME 95.4 fL (80.0-94.0); MEAN PLATELET VOLUME 8.7 fl (7.4-10.4); PLATELET 131 x1000/uL (130-400); RED BLOOD CELL COUNT 3.35 mill/uL (4.7-6.1); RED CELL DISTRIBUTION WIDTH 13.3 % (11.6-14.6)
[2018-04-18 12:46] LABS: CHLORIDE 119 mEq/L (98-107)
[2018-04-18 12:47] LABS: INR 1.1; PARTIAL THROMBOPLASTIN TIME 22.9 sec (23.4-31.0)
[2018-04-18 12:52] LABS: PHOSPHORUS 3.6 mg/dL (2.5-4.9)
[2018-04-18 12:54] LABS: AMYLASE 573 IU/L (25-115)
[2018-04-18 12:55] LABS: CREATINE KINASE 274 IU/L (39-308)
[2018-04-18 13:44] LABS: PLATELET ESTIMATE NORMAL
[2018-04-18 14:48] LABS: CLARITY URINE CLOUDY (CLEAR); COLOR URINE YELLOW (YELLOW); KETONES URINE NEGATIVE (NEGATIVE); LEUKOCYTE ESTERASE URINE NEGATIVE (NEGATIVE); NITRITE URINE NEGATIVE (NEGATIVE); OCCULT BLOOD URINE 2+ (NEGATIVE); PROTEIN URINE NEGATIVE (NEGATIVE); UROBILINOGEN URINE 0.2 E.U./dL (0.2-1.0)
[2018-04-18 18:11] LABS: BG BASE EXCESS 2.5 mmol/L (-2.0-2.0); BG CARBOXYHEMOGLOBIN 0.3 % (0.5-1.5); BG DEOXYHEMOGLOBIN 1.9 % (0.0-5.0); BG HCO3 ACT 27.2 mmol/L (22.0-26.0); BG METHEMOGLOBIN 0.1 % (0.0-1.5); BG OXYGEN SATURATION 98.1 % (92.0-98.5); BG OXYHEMOGLOBIN 97.7 % (94.0-97.0); BG PCO2 42.5 mmHg (35.0-45.0); BG PH 7.424 (7.350-7.450); BG PIP 31 cmH2O; BG PO2 112.1 mmHg (75.0-100.0); BG SAMPLE SITE RIGHT RADIAL; BG TOTAL HEMOGLOBIN 11.1 g/dL (12.0-18.0); BG VENT MODE VENT - PCV; BG VENT RATE 11 set
[2018-04-18 18:54] LABS: BASOPHILS % 0.1 % (0.0-2.0); HEMATOCRIT. 31.2 % (42.0-52.0); INR 1.1; LYMPHOCYTES % 7.7 % (20.0-50.0); MEAN CORPUSCULAR HEMOGLOBIN 30.3 pg (28.0-32.0); MEAN CORPUSCULAR VOLUME 94.5 fL (80.0-94.0); MEAN PLATELET VOLUME 8.2 fl (7.4-10.4); MONOCYTES % 4.3 % (2.0-8.0); NEUTROPHILS % 87.9 % (40.0-76.0); PARTIAL THROMBOPLASTIN TIME 23.8 sec (23.4-31.0); PLATELET 124 x1000/uL (130-400); RED CELL DISTRIBUTION WIDTH 13.5 % (11.6-14.6)
[2018-04-18 18:55] LABS: CHLORIDE 117 mEq/L (98-107)
[2018-04-18 18:56] LABS: CLARITY URINE CLEAR (CLEAR); COLOR URINE YELLOW (YELLOW); KETONES URINE NEGATIVE (NEGATIVE); LEUKOCYTE ESTERASE URINE NEGATIVE (NEGATIVE); NITRITE URINE NEGATIVE (NEGATIVE); OCCULT BLOOD URINE 1+ (NEGATIVE); PROTEIN URINE NEGATIVE (NEGATIVE); UROBILINOGEN URINE 0.2 E.U./dL (0.2-1.0)
[2018-04-18 19:02] LABS: PHOSPHORUS 3.4 mg/dL (2.5-4.9)
[2018-04-18 19:04] LABS: CREATINE KINASE 244 IU/L (39-308)
[2018-04-18 19:05] LABS: AMYLASE 660 IU/L (25-115); CREATINE KINASE MB FRACTION 2.7 ng/mL (0.5-3.6)
[2018-04-18] MEDS: POTASSIUM CHLORIDE IV SCH ×4 (20:17)
[2018-04-18] MEDS: WATER IV SCH ×4 (20:17)
[2018-04-18] MEDS: [UNRECOGNIZED DRUG - OTHER] IV SCH ×4 (20:17)
[2018-04-18] MEDS: DEXTROSE 50% IV SCH ×4 (20:17)
[2018-04-18] MEDS: LEVOTHYROXINE SODIUM 200 MCG in SODIUM CHLORIDE 0.9% 500 ML IV SCH (20:35)
[2018-04-19] VITALS (77 sets, daily range): BP systolic 103–181; BP diastolic 61–119
[2018-04-19 00:58] LABS: BG BASE EXCESS 2.8 mmol/L (-2.0-2.0); BG CARBOXYHEMOGLOBIN 0.6 % (0.5-1.5); BG DEOXYHEMOGLOBIN 2.5 % (0.0-5.0); BG FRACTION INSPIRED OXYGEN 30; BG HCO3 ACT 28.9 mmol/L (22.0-26.0); BG METHEMOGLOBIN 0.2 % (0.0-1.5); BG OXYGEN SATURATION 97.5 % (92.0-98.5); BG OXYHEMOGLOBIN 96.7 % (94.0-97.0); BG PCO2 51.2 mmHg (35.0-45.0); BG PO2 102.5 mmHg (75.0-100.0); BG SAMPLE SITE A-LINE; BG TOTAL HEMOGLOBIN 12.7 g/dL (12.0-18.0); BG VENT MODE BILEVEL; BG VENT RATE 11 set
[2018-04-19 01:10] LABS: HEMATOCRIT. 30.3 % (42.0-52.0); HEMOGLOBIN. 9.7 g/dL (14.0-18.0); MEAN CORPUSCULAR HEMOGLOBIN 30.5 pg (28.0-32.0); MEAN CORPUSCULAR VOLUME 94.7 fL (80.0-94.0); MEAN PLATELET VOLUME 8.8 fl (7.4-10.4); PLATELET 119 x1000/uL (130-400); RED CELL DISTRIBUTION WIDTH 13.2 % (11.6-14.6)
[2018-04-19 01:11] LABS: CHLORIDE 113 mEq/L (98-107)
[2018-04-19 01:15] LABS: INR 1.1; PARTIAL THROMBOPLASTIN TIME 23.6 sec (23.4-31.0); PROTHROMBIN TIME 10.9 sec (9.1-11.1)
[2018-04-19 01:17] LABS: PHOSPHORUS 4.3 mg/dL (2.5-4.9)
[2018-04-19 01:20] LABS: CREATINE KINASE 210 IU/L (39-308); CREATINE KINASE MB FRACTION 3.2 ng/mL (0.5-3.6)
[2018-04-19 01:23] LABS: AMYLASE 644 IU/L (25-115)
[2018-04-19] MEDS: POLYVINYL ALCOHOL OPHTH DROPS 15ML BOTHEYE SCH ×9 (01:50→17:50)
[2018-04-19] MEDS: FUROSEMIDE 100MG/10ML VIAL IVP SCH ×4 (01:50→18:02)
[2018-04-19] MEDS ORDERED: DEXTROSE 50% WATER 50ML SYRINGE IV ONE ×2 (02:00→04:00)
[2018-04-19] MEDS ORDERED: DEXTROSE 10% WATER 1,000 ML IV ONE (02:00)
[2018-04-19] MEDS: BLOOD SUGAR DIAGNOSTIC STRIP TEST SCH ×10 (02:00→22:37)
[2018-04-19 02:19] LABS: PLATELET ESTIMATE DECREASED
[2018-04-19 02:31] LABS: CLARITY URINE CLEAR (CLEAR); COLOR URINE YELLOW (YELLOW); KETONES URINE NEGATIVE (NEGATIVE); LEUKOCYTE ESTERASE URINE NEGATIVE (NEGATIVE); NITRITE URINE NEGATIVE (NEGATIVE); OCCULT BLOOD URINE TRACE (NEGATIVE); PROTEIN URINE NEGATIVE (NEGATIVE); SPECIFIC GRAVITY URINE 1.008 (1.005-1.030); UROBILINOGEN URINE 0.2 E.U./dL (0.2-1.0)
[2018-04-19] MEDS ORDERED: KCL 20MEQ/100ML PREMIX 100 ML IV SCH (03:00)
[2018-04-19] MEDS: DEXTROSE 50% IV SCH ×4 (04:29)
[2018-04-19] MEDS: [UNRECOGNIZED DRUG - OTHER] IV SCH ×4 (04:29)
[2018-04-19] MEDS: WATER IV SCH ×4 (04:29)
[2018-04-19] MEDS: POTASSIUM CHLORIDE IV SCH ×4 (04:29)
[2018-04-19] MEDS: METHYLPREDNISOLONE SOD SUCC 500 MG in SODIUM CHLORIDE 0.9% 50 ML IV SCH ×3 (05:50→22:37)
[2018-04-19 06:42] LABS: BG FRACTION INSPIRED OXYGEN 30; BG PCO2 50.4 mmHg (35.0-45.0); BG PH 7.393 (7.350-7.450); BG PO2 89.7 mmHg (75.0-100.0); BG SAMPLE SITE A-LINE; BG VENT MODE BILEVEL; BG VENT RATE 12 set
[2018-04-19] MEDS: VASOPRESSIN 100 UNIT in SODIUM CHLORIDE 0.9% 99.5 ML IV SCH (07:04)
[2018-04-19] MEDS ORDERED: ACETAZOLAMIDE SODIUM 500MG/VIAL IV NR (07:15)
[2018-04-19 07:22] LABS: HEMATOCRIT. 28.9 % (42.0-52.0); HEMOGLOBIN. 9.5 g/dL (14.0-18.0); MEAN CORPUSCULAR HEMOGLOBIN 30.9 pg (28.0-32.0); MEAN CORPUSCULAR VOLUME 93.7 fL (80.0-94.0); MEAN PLATELET VOLUME 9.2 fl (7.4-10.4); PLATELET 120 x1000/uL (130-400); RED BLOOD CELL COUNT 3.08 mill/uL (4.7-6.1); RED CELL DISTRIBUTION WIDTH 12.9 % (11.6-14.6)
[2018-04-19 07:31] LABS: INR 1.1; PARTIAL THROMBOPLASTIN TIME 23.9 sec (23.4-31.0); PROTHROMBIN TIME 11.1 sec (9.1-11.1)
[2018-04-19 07:36] LABS: CHLORIDE 109 mEq/L (98-107)
[2018-04-19 07:40] LABS: AMYLASE 586 IU/L (25-115)
[2018-04-19 07:42] LABS: PHOSPHORUS 3.5 mg/dL (2.5-4.9)
[2018-04-19 07:45] LABS: CREATINE KINASE 184 IU/L (39-308); CREATINE KINASE MB FRACTION 3.3 ng/mL (0.5-3.6)
[2018-04-19] MEDS ORDERED: DEXTROSE 50% WATER 50ML SYRINGE IV NR ×3 (07:45→16:15)
[2018-04-19] MEDS ORDERED: MAGNESIUM 2 G PREMIX 50 ML IV ONE (08:00)
[2018-04-19 08:12] LABS: CLARITY URINE CLEAR (CLEAR); COLOR URINE YELLOW (YELLOW); KETONES URINE NEGATIVE (NEGATIVE); LEUKOCYTE ESTERASE URINE NEGATIVE (NEGATIVE); NITRITE URINE NEGATIVE (NEGATIVE); OCCULT BLOOD URINE TRACE (NEGATIVE); PROTEIN URINE NEGATIVE (NEGATIVE); UROBILINOGEN URINE 0.2 E.U./dL (0.2-1.0)
[2018-04-19] MEDS ORDERED: MAGNESIUM SULFATE 2 GM in DEXTROSE 5% WATER 50 ML IV NR (09:30)
[2018-04-19 11:41] LABS: PLATELET ESTIMATE SLIGHTLY DECREASED
[2018-04-19] MEDS ORDERED: DEXTROSE 50% WATER 50ML SYRINGE IV PRN (12:45)
[2018-04-19 12:51] LABS: BG BASE EXCESS 1.1 mmol/L (-2.0-2.0); BG CARBOXYHEMOGLOBIN 0.3 % (0.5-1.5); BG DEOXYHEMOGLOBIN 2.2 % (0.0-5.0); BG FRACTION INSPIRED OXYGEN 40; BG HCO3 ACT 27.7 mmol/L (22.0-26.0); BG METHEMOGLOBIN 0.9 % (0.0-1.5); BG OXYGEN SATURATION 97.8 % (92.0-98.5); BG OXYHEMOGLOBIN 96.6 % (94.0-97.0); BG PCO2 53.9 mmHg (35.0-45.0); BG PH 7.328 (7.350-7.450); BG PO2 119.4 mmHg (75.0-100.0); BG SAMPLE SITE A-LINE; BG VENT MODE VENT - PCV; BG VENT RATE 12 set
[2018-04-19] MEDS ORDERED: KCL 20MEQ/100ML PREMIX 100 ML IV NR (13:00)
[2018-04-19 13:15] LABS: HEMATOCRIT. 29.1 % (42.0-52.0); HEMOGLOBIN. 9.5 g/dL (14.0-18.0); MEAN CORPUSCULAR HEMOGLOBIN 30.9 pg (28.0-32.0); MEAN CORPUSCULAR VOLUME 94.8 fL (80.0-94.0); MEAN PLATELET VOLUME 9.1 fl (7.4-10.4); PLATELET 111 x1000/uL (130-400); RED BLOOD CELL COUNT 3.06 mill/uL (4.7-6.1); RED CELL DISTRIBUTION WIDTH 12.9 % (11.6-14.6)
[2018-04-19 13:16] LABS: CLARITY URINE CLEAR (CLEAR); COLOR URINE YELLOW (YELLOW); KETONES URINE NEGATIVE (NEGATIVE); LEUKOCYTE ESTERASE URINE NEGATIVE (NEGATIVE); NITRITE URINE NEGATIVE (NEGATIVE); OCCULT BLOOD URINE TRACE (NEGATIVE); PROTEIN URINE NEGATIVE (NEGATIVE); SPECIFIC GRAVITY URINE 1.008 (1.005-1.030); UROBILINOGEN URINE 0.2 E.U./dL (0.2-1.0)
[2018-04-19 13:21] LABS: CHLORIDE 107 mEq/L (98-107)
[2018-04-19 13:23] LABS: INR 1.1; PARTIAL THROMBOPLASTIN TIME 23.3 sec (23.4-31.0); PROTHROMBIN TIME 10.7 sec (9.1-11.1)
[2018-04-19 13:28] LABS: AMYLASE 550 IU/L (25-115)
[2018-04-19 13:30] LABS: PHOSPHORUS 4.8 mg/dL (2.5-4.9)
[2018-04-19 13:33] LABS: CREATINE KINASE 159 IU/L (39-308); CREATINE KINASE MB FRACTION 3.2 ng/mL (0.5-3.6)
[2018-04-19 13:49] LABS: PLATELET ESTIMATE SLIGHTLY DECREASED
[2018-04-19] MEDS ORDERED: MANNITOL 20% 0 ML IV ONE (16:37)
[2018-04-19] MEDS ORDERED: FUROSEMIDE 40MG/4ML VIAL ONE (16:39)
[2018-04-19] MEDS ORDERED: HEPARIN 5000 UNITS/ML VIAL ONE (16:40)
[2018-04-19] MEDS ORDERED: MANNITOL 12.5G (25%) VIAL 50ML IV NR (17:00)
[2018-04-19] MEDS ORDERED: MANNITOL 12.5G (25%) VIAL 50ML IV PRN (17:15)
[2018-04-19] MEDS: LEVOTHYROXINE SODIUM 200 MCG in SODIUM CHLORIDE 0.9% 500 ML IV SCH (17:45)
[2018-04-19 18:09] LABS: BG CARBOXYHEMOGLOBIN 0.3 % (0.5-1.5); BG DEOXYHEMOGLOBIN 1.1 % (0.0-5.0); BG FRACTION INSPIRED OXYGEN 40; BG METHEMOGLOBIN 0.2 % (0.0-1.5); BG OXYGEN SATURATION 98.9 % (92.0-98.5); BG OXYHEMOGLOBIN 98.4 % (94.0-97.0); BG PCO2 43.2 mmHg (35.0-45.0); BG PH 7.397 (7.350-7.450); BG SAMPLE SITE A-LINE; BG TOTAL HEMOGLOBIN 10.3 g/dL (12.0-18.0); BG VENT MODE VENT - PCV; BG VENT RATE 12 set
[2018-04-19 19:02] LABS: HEMATOCRIT. 29.6 % (42.0-52.0); HEMOGLOBIN. 9.6 g/dL (14.0-18.0); MEAN CORPUSCULAR HEMOGLOBIN 30.9 pg (28.0-32.0); MEAN PLATELET VOLUME 9.2 fl (7.4-10.4); PLATELET 113 x1000/uL (130-400); RED BLOOD CELL COUNT 3.11 mill/uL (4.7-6.1); RED CELL DISTRIBUTION WIDTH 12.8 % (11.6-14.6)
[2018-04-19 19:07] LABS: INR 1.1; PARTIAL THROMBOPLASTIN TIME 23.6 sec (23.4-31.0); PROTHROMBIN TIME 10.9 sec (9.1-11.1)
[2018-04-19 19:16] LABS: CLARITY URINE CLEAR (CLEAR); COLOR URINE YELLOW (YELLOW); KETONES URINE NEGATIVE (NEGATIVE); LEUKOCYTE ESTERASE URINE NEGATIVE (NEGATIVE); NITRITE URINE NEGATIVE (NEGATIVE); OCCULT BLOOD URINE TRACE (NEGATIVE); PH URINE >=9.0 (4.5-8.0); PROTEIN URINE NEGATIVE (NEGATIVE); UROBILINOGEN URINE 0.2 E.U./dL (0.2-1.0)
[2018-04-19 19:39] LABS: PLATELET ESTIMATE DECREASED
[2018-04-19 19:40] LABS: CHLORIDE 107 mEq/L (98-107)
[2018-04-19 19:44] LABS: AMYLASE 561 IU/L (25-115)
[2018-04-19 19:47] LABS: PHOSPHORUS 4.7 mg/dL (2.5-4.9)
[2018-04-19 19:49] LABS: CREATINE KINASE 137 IU/L (39-308); CREATINE KINASE MB FRACTION 3.4 ng/mL (0.5-3.6)
[2018-04-19] MEDS: INSULIN REGULAR (DRIP) 100 UNITS in SODIUM CHLORIDE 0.9% 100 ML IV SCH (22:49)
[2018-04-20] VITALS (59 sets, daily range): BP systolic -1–205; BP diastolic 1–203
[2018-04-20] MEDS: FUROSEMIDE 100MG/10ML VIAL IVP SCH ×3 (01:16→12:40)
[2018-04-20] MEDS: POLYVINYL ALCOHOL OPHTH DROPS 15ML BOTHEYE SCH ×9 (01:17→16:00)
[2018-04-20 01:27] LABS: BG BASE EXCESS 2.8 mmol/L (-2.0-2.0); BG CARBOXYHEMOGLOBIN 0.3 % (0.5-1.5); BG DEOXYHEMOGLOBIN 1.4 % (0.0-5.0); BG FRACTION INSPIRED OXYGEN 40; BG HCO3 ACT 27.9 mmol/L (22.0-26.0); BG METHEMOGLOBIN 0.1 % (0.0-1.5); BG OXYGEN SATURATION 98.6 % (92.0-98.5); BG OXYHEMOGLOBIN 98.2 % (94.0-97.0); BG PCO2 45.4 mmHg (35.0-45.0); BG PH 7.407 (7.350-7.450); BG PIP 28 cmH2O; BG SAMPLE SITE A-LINE; BG TOTAL HEMOGLOBIN 10.5 g/dL (12.0-18.0); BG VENT MODE VENT - PCV; BG VENT RATE 13 set
[2018-04-20] MEDS: BLOOD SUGAR DIAGNOSTIC STRIP TEST SCH ×9 (02:00→16:00)
[2018-04-20 02:21] LABS: CHLORIDE 107 mEq/L (98-107)
[2018-04-20 02:25] LABS: AMYLASE 521 IU/L (25-115)
[2018-04-20 02:27] LABS: PHOSPHORUS 6.5 mg/dL (2.5-4.9)
[2018-04-20 02:30] LABS: CREATINE KINASE 109 IU/L (39-308); CREATINE KINASE MB FRACTION 2.8 ng/mL (0.5-3.6)
[2018-04-20 02:38] LABS: HEMATOCRIT. 29.8 % (42.0-52.0); HEMOGLOBIN. 9.6 g/dL (14.0-18.0); MEAN CORPUSCULAR HEMOGLOBIN 30.7 pg (28.0-32.0); MEAN PLATELET VOLUME 9.8 fl (7.4-10.4); PLATELET 124 x1000/uL (130-400); RED BLOOD CELL COUNT 3.14 mill/uL (4.7-6.1); RED CELL DISTRIBUTION WIDTH 12.7 % (11.6-14.6)
[2018-04-20 03:00] LABS: INR 1.1; PARTIAL THROMBOPLASTIN TIME 22.1 sec (23.4-31.0)
[2018-04-20 04:28] LABS: CLARITY URINE CLEAR (CLEAR); COLOR URINE YELLOW (YELLOW); KETONES URINE NEGATIVE (NEGATIVE); LEUKOCYTE ESTERASE URINE NEGATIVE (NEGATIVE); NITRITE URINE NEGATIVE (NEGATIVE); OCCULT BLOOD URINE 2+ (NEGATIVE); PH URINE 6.5 (4.5-8.0); PROTEIN URINE TRACE (NEGATIVE); SPECIFIC GRAVITY URINE 1.014 (1.005-1.030); UROBILINOGEN URINE 0.2 E.U./dL (0.2-1.0)
[2018-04-20 05:08] LABS: PLATELET ESTIMATE SLIGHTLY DECREASED
[2018-04-20] MEDS: METHYLPREDNISOLONE SOD SUCC 500 MG in SODIUM CHLORIDE 0.9% 50 ML IV SCH ×2 (05:29→13:54)
[2018-04-20 05:52] LABS: BG BASE EXCESS 1.1 mmol/L (-2.0-2.0); BG CARBOXYHEMOGLOBIN 0.3 % (0.5-1.5); BG DEOXYHEMOGLOBIN 1.2 % (0.0-5.0); BG FRACTION INSPIRED OXYGEN 40; BG HCO3 ACT 25.4 mmol/L (22.0-26.0); BG METHEMOGLOBIN 0.3 % (0.0-1.5); BG OXYGEN SATURATION 98.8 % (92.0-98.5); BG OXYHEMOGLOBIN 98.2 % (94.0-97.0); BG PCO2 39.1 mmHg (35.0-45.0); BG PH 7.431 (7.350-7.450); BG PO2 162.1 mmHg (75.0-100.0); BG SAMPLE SITE A-LINE; BG TOTAL HEMOGLOBIN 10.4 g/dL (12.0-18.0); BG VENT MODE VENT - PCV; BG VENT RATE 13 set
[2018-04-20 06:40] LABS: HEMATOCRIT. 30.6 % (42.0-52.0); HEMOGLOBIN. 10.2 g/dL (14.0-18.0); MEAN CORPUSCULAR HEMOGLOBIN 31.2 pg (28.0-32.0); MEAN CORPUSCULAR VOLUME 93.7 fL (80.0-94.0); MEAN PLATELET VOLUME 10.1 fl (7.4-10.4); PLATELET 175 x1000/uL (130-400); RED BLOOD CELL COUNT 3.27 mill/uL (4.7-6.1); RED CELL DISTRIBUTION WIDTH 12.8 % (11.6-14.6)
[2018-04-20 06:45] LABS: CLARITY URINE CLEAR (CLEAR); COLOR URINE YELLOW (YELLOW); KETONES URINE NEGATIVE (NEGATIVE); LEUKOCYTE ESTERASE URINE NEGATIVE (NEGATIVE); NITRITE URINE NEGATIVE (NEGATIVE); OCCULT BLOOD URINE 2+ (NEGATIVE); PH URINE 8.5 (4.5-8.0); PROTEIN URINE NEGATIVE (NEGATIVE); SPECIFIC GRAVITY URINE 1.008 (1.005-1.030); UROBILINOGEN URINE 0.2 E.U./dL (0.2-1.0)
[2018-04-20 06:52] LABS: INR 1.1; PARTIAL THROMBOPLASTIN TIME 22.5 sec (23.4-31.0)
[2018-04-20 06:55] LABS: CHLORIDE 106 mEq/L (98-107)
[2018-04-20 07:03] LABS: AMYLASE 535 IU/L (25-115)
[2018-04-20 07:06] LABS: PHOSPHORUS 6.6 mg/dL (2.5-4.9)
[2018-04-20 07:08] LABS: CREATINE KINASE 187 IU/L (39-308)
[2018-04-20 07:18] LABS: PLATELET ESTIMATE NORMAL
[2018-04-20 07:19] LABS: CREATINE KINASE MB FRACTION 2.4 ng/mL (0.5-3.6)
[2018-04-20] MEDS: VASOPRESSIN 100 UNIT in SODIUM CHLORIDE 0.9% 99.5 ML IV SCH (08:26)
[2018-04-20 10:15] LABS: BG BASE EXCESS 0.6 mmol/L (-2.0-2.0); BG CARBOXYHEMOGLOBIN 0.3 % (0.5-1.5); BG DEOXYHEMOGLOBIN 1.7 % (0.0-5.0); BG FRACTION INSPIRED OXYGEN 35; BG HCO3 ACT 25.6 mmol/L (22.0-26.0); BG METHEMOGLOBIN 0.2 % (0.0-1.5); BG OXYGEN SATURATION 98.3 % (92.0-98.5); BG OXYHEMOGLOBIN 97.8 % (94.0-97.0); BG PCO2 42.3 mmHg (35.0-45.0); BG PH 7.399 (7.350-7.450); BG PO2 137.1 mmHg (75.0-100.0); BG SAMPLE SITE A-LINE; BG TOTAL HEMOGLOBIN 11.2 g/dL (12.0-18.0); BG VENT MODE BILEVEL; BG VENT RATE 13 set
[2018-04-20 10:38] LABS: HEMATOCRIT. 30.9 % (42.0-52.0); HEMOGLOBIN. 10.2 g/dL (14.0-18.0); MEAN CORPUSCULAR HEMOGLOBIN 31.2 pg (28.0-32.0); MEAN CORPUSCULAR VOLUME 93.9 fL (80.0-94.0); MEAN PLATELET VOLUME 9.6 fl (7.4-10.4); PLATELET 125 x1000/uL (130-400); RED BLOOD CELL COUNT 3.29 mill/uL (4.7-6.1); RED CELL DISTRIBUTION WIDTH 12.6 % (11.6-14.6)
[2018-04-20 10:41] LABS: CLARITY URINE CLEAR (CLEAR); COLOR URINE YELLOW (YELLOW); KETONES URINE NEGATIVE (NEGATIVE); LEUKOCYTE ESTERASE URINE NEGATIVE (NEGATIVE); NITRITE URINE NEGATIVE (NEGATIVE); OCCULT BLOOD URINE 2+ (NEGATIVE); PROTEIN URINE NEGATIVE (NEGATIVE); SPECIFIC GRAVITY URINE 1.013 (1.005-1.030); UROBILINOGEN URINE 0.2 E.U./dL (0.2-1.0)
[2018-04-20 10:46] LABS: CHLORIDE 106 mEq/L (98-107)
[2018-04-20 10:47] LABS: INR 1.1; PARTIAL THROMBOPLASTIN TIME 23.3 sec (23.4-31.0); PROTHROMBIN TIME 11.4 sec (9.1-11.1)
[2018-04-20 10:52] LABS: PHOSPHORUS 7.2 mg/dL (2.5-4.9)
[2018-04-20 10:54] LABS: CREATINE KINASE 96 IU/L (39-308)
[2018-04-20 10:55] LABS: CREATINE KINASE MB FRACTION 2.5 ng/mL (0.5-3.6)
[2018-04-20 10:58] LABS: AMYLASE 523 IU/L (25-115); PLATELET ESTIMATE SLIGHTLY DECREASED
[2018-04-20] MEDS ORDERED: ALBUMIN HUMAN 25GM/100ML (25%) IV NR (11:45)
[2018-04-20 15:44] LABS: BG BASE EXCESS 2.7 mmol/L (-2.0-2.0); BG CARBOXYHEMOGLOBIN 0.3 % (0.5-1.5); BG DEOXYHEMOGLOBIN 1.6 % (0.0-5.0); BG HCO3 ACT 28.2 mmol/L (22.0-26.0); BG METHEMOGLOBIN 0.3 % (0.0-1.5); BG OXYGEN SATURATION 98.4 % (92.0-98.5); BG OXYHEMOGLOBIN 97.8 % (94.0-97.0); BG PCO2 47.5 mmHg (35.0-45.0); BG PH 7.391 (7.350-7.450); BG PIP 24 cmH2O; BG SAMPLE SITE A-LINE; BG TOTAL HEMOGLOBIN 10.5 g/dL (12.0-18.0); BG VENT MODE BILEVEL; BG VENT RATE 13 set
[2018-04-20 16:13] LABS: CLARITY URINE CLEAR (CLEAR); COLOR URINE YELLOW (YELLOW); KETONES URINE NEGATIVE (NEGATIVE); LEUKOCYTE ESTERASE URINE NEGATIVE (NEGATIVE); NITRITE URINE NEGATIVE (NEGATIVE); OCCULT BLOOD URINE 2+ (NEGATIVE); PH URINE 6.5 (4.5-8.0); PROTEIN URINE NEGATIVE (NEGATIVE); SPECIFIC GRAVITY URINE 1.012 (1.005-1.030); UROBILINOGEN URINE 0.2 E.U./dL (0.2-1.0)
[2018-04-20 16:15] LABS: HEMATOCRIT. 29.2 % (42.0-52.0); HEMOGLOBIN. 9.7 g/dL (14.0-18.0); MEAN CORPUSCULAR HEMOGLOBIN 30.9 pg (28.0-32.0); MEAN CORPUSCULAR VOLUME 93.3 fL (80.0-94.0); MEAN PLATELET VOLUME 9.5 fl (7.4-10.4); PLATELET 120 x1000/uL (130-400); RED BLOOD CELL COUNT 3.13 mill/uL (4.7-6.1); RED CELL DISTRIBUTION WIDTH 12.7 % (11.6-14.6)
[2018-04-20] MEDS: INSULIN REGULAR (DRIP) 100 UNITS in SODIUM CHLORIDE 0.9% 100 ML IV SCH (16:25)
[2018-04-20 16:32] LABS: AMYLASE 451 IU/L (25-115); CHLORIDE 105 mEq/L (98-107); CREATINE KINASE 98 IU/L (39-308); CREATINE KINASE MB FRACTION 2.6 ng/mL (0.5-3.6)
[2018-04-20 16:37] LABS: INR 1.1; PARTIAL THROMBOPLASTIN TIME 22.8 sec (23.4-31.0); PROTHROMBIN TIME 11.5 sec (9.1-11.1)
[2018-04-20 16:44] LABS: PLATELET ESTIMATE DECREASED
[2018-04-20 17:07] LABS: PHOSPHORUS 8.5 mg/dL (2.5-4.9)
[2018-04-20] MEDS ORDERED: ROCURONIUM BROMIDE 10MG/ML VIAL 5ML IV ONE (19:05)
== END 2018-04-20 21:43 | disposition expired | DRG 52 ==
LOC: MICUSO 13:57 → INTOOBSV 13:57 → OBSVTOIN 13:57
PROVIDERS: ADMIT Internal Medicine
PROC: 03HY32Z Insertion of Monitoring Device into Upper Artery, Percutaneous Approach (ICD-10-PCS; principal; 2018-04-17)
PROC: 5A1945Z Respiratory Ventilation, 24-96 Consecutive Hours (ICD-10-PCS; 2018-04-17)
PROC: 4A133B1 Monitoring of Arterial Pressure, Peripheral, Percutaneous Approach (ICD-10-PCS; 2018-04-17)
PROC: 4A133J1 Monitoring of Arterial Pulse, Peripheral, Percutaneous Approach (ICD-10-PCS; 2018-04-17)
PROC: 0BH17EZ Insertion of Endotracheal Airway into Trachea, Via Natural or Artificial Opening (ICD-10-PCS; 2018-04-17)
DX: J45.909 Unspecified asthma, uncomplicated
CPT/HCPCS: 36415; 36600; 71045; 76700; 80053; 81003; 82150; 82248; 82330; 82375; 82550; 82553; 82805; 82962; 82977; 83605; 83615; 83690; 83735; 83930; 84100; 84484; 85025; 85610; 85730; 86850; 86900; 86920; 87040; 87070; 87086; 87106; 93005; 93306; 94003; J1120; J1250; J1644; J1815; J1940; J2150; J2930; J3475; J3480; J3490; J7040; J7050; J7060; P9047